=== PATIENT | male | born 1980 | race Caucasian/White ===

== ENCOUNTER → 2017-05-25 | Outpatient (CLI) | payer MEDICAID ==
--- NOTE | 2017-05-25 12:52 | Diagnostic Imaging Report ---
3 views of the lumbar spine. INDICATION: Back pain. FINDINGS: There is satisfactory alignment of the lumbar spine. There is anterior wedging of T12 vertebral body. This could relate to mild compression fracture of indeterminate age. Schmorl nodes are seen at upper lumbar spine and lower thoracic spine disc levels. No significant anterior or posterior osteophytes. The paraspinal soft tissues appear unremarkable. IMPRESSION: Mild anterior wedging of T12 vertebral body could relate to mild age-indeterminate compression fracture. This can be further evaluated with MRI if needed. Dictated by: Dictated on workstation # [id number]
== END ==
LOC: RAD 11:37
PROVIDERS: ATTEND Nurse Practitioner Family
DX: M54.5 Low back pain (principal)
CPT/HCPCS: 72100

== ENCOUNTER → 2017-07-05 | Outpatient (CLI) | payer MEDICAID ==
[2017-07-05 09:41] LABS: BLOOD UREA NITROGEN 12 MG/DL (7-18); BUN/CREATININE RATIO 13; CREATININE SERUM 0.92 MG/DL (0.60-1.30); GFR ESTIMATED > 60
== END ==
LOC: RAD 09:07
PROVIDERS: ATTEND Nurse Practitioner Family
DX: S22.080D Wedge compression fracture of T11-T12 vertebra, subsequent encounter for fracture with routine healing (principal)
CPT/HCPCS: 36415; 82565; 84520

== ENCOUNTER 2017-11-15 08:19 | Outpatient (RCR) | payer MEDICAID | END 2017-11-18 | disposition home or self-care (01) | PROVIDERS: ATTEND Orthopaedic Surgery | DX: M51.36 Other intervertebral disc degeneration, lumbar region (principal) ==

== ENCOUNTER 2017-12-31 08:58 | Outpatient (RCR) | payer MEDICAID | END 2018-01-11 08:53 | disposition home or self-care (01) | PROVIDERS: ATTEND Orthopaedic Surgery | DX: M51.36 Other intervertebral disc degeneration, lumbar region (principal) ==